=== PATIENT | female | born 1955 | race Two or more races ===

== ENCOUNTER 2021-10-26 14:47 | Emergency (ER) | payer OTHER ==
[~2021-10-26] VITALS: Ht 154.9 cm; Wt 66.0 kg
[2021-10-26 14:56] VITALS: BP 153/86
[2021-10-26] MEDS ORDERED: IBUPROFEN 600MG TABLET PO ONE (16:00)
[2021-10-26] MEDS ORDERED: ACETAMINOPHEN 325MG TABLET PO ONE (16:00)
== END 2021-10-26 16:55 | disposition home or self-care (01) ==
LOC: ER 15:08
DX: S10.93XA Contusion of unspecified part of neck, initial encounter (principal); Y04.0XXA Assault by unarmed brawl or fight, initial encounter; Y93.89 Activity, other specified; Y92.89 Other specified places as the place of occurrence of the external cause; Y99.8 Other external cause status
CPT/HCPCS: 99284